=== PATIENT | male | born 1945 | race Caucasian/White ===

== ENCOUNTER 2017-10-09 00:34 | Emergency (ER) | payer OTHER, SELFPAY ==
[2017-10-09 00:57] VITALS: BP 152/93; PULSE 120; RESP 16; TEMP 36.3; O2SAT 98
--- NOTE | 2017-10-09 01:49 | DI.CT.S_ITS ---
PROCEDURE: CT THORACIC SPINE WO CON INDICATIONS: lower extremety numbness, suspected cauda equinal w/ untreated metastatic prostate CA TECHNIQUE: Noncontrast 3 mm thick sections acquired through the region of interest in the thoracic spine. Sagittal and coronal reformats were then constructed. For radiation dose reduction, the following was used: automated exposure control. COMPARISON: [facility], CT, CT LUMBAR SPINE WO CON, 10/09/2017, 1:47. FINDINGS: Image quality: Diagnostic. Bones: On the lateral views, the cervicothoracic junction is adequately visualized and the alignment through this region is within normal limits. The vertebral body heights are within normal limits throughout the thoracic spine without evidence to suggest acute compression fracture. However, there is superior endplate sclerosis involving the T11 vertebral body with slight concavity of the superior endplate. The bone mineralization is within normal limits. No suspicious osseous lesions of the thoracic spine are evident. However, there are small foci of sclerosis involving the L1 and L2 vertebra. There is a questionable area of sclerosis involving the left T12 pedicle. Moderate multilevel degenerative changes of the thoracic spine are present demonstrating multilevel endplate irregularity and prominent anterior disc osteophytes. Degenerative changes of the lower cervical spine are not adequately evaluated. Soft tissues: Included the soft tissues of the posterior chest and upper abdomen are essentially within normal limits for the patient's age. There is a small hiatal hernia. There is aortic and coronary artery atherosclerosis. The lungs appear to be relatively well aerated. Imaged portions of the mediastinum are grossly unremarkable. The included portions of the upper abdomen appear to be within normal limits. IMPRESSION: 1. Minimal sclerosis of the left T12 pedicle may be degenerative. No convincing thoracic metastases are evident. 2. Mild superior endplate sclerosis involving the T11 vertebral body may be degenerative. However, possibility of an acute compression fracture without significant vertebral collapse is difficult to exclude and clinical correlation is recommended. The need for better characterization utilizing MRI may be determined clinically. 3. Metastatic disease of the imaged upper lumbar spine is present. Note: The preliminary report provided by [facility] is concordant with the final report. Dictated by: Gera Garay M.D. on 10/09/2017 at 8:11 Approved by: Gera Garay M.D. on 10/09/2017 at 8:17
--- NOTE | 2017-10-09 01:49 | DI.CT.S_ITS ---
PROCEDURE: CT LUMBAR SPINE WO CON INDICATIONS: lower extremety numbness,suspected cauda equinal w/ untreated metastatic prostate cancer TECHNIQUE: Noncontrast 3 mm thick sections acquired from the T12 level to the sacrum. Sagittal and coronal reformats were constructed. For radiation dose reduction, the following was used: automated exposure control. COMPARISON: None. FINDINGS: Image quality: Diagnostic. Bones: There are 5 lumbar-type vertebral bodies. The lowest intervertebral disk space is designated as L5-S1. The vertebral body heights are well-maintained without evidence to suggest an acute compression fracture. The bone mineralization is within normal limits. Extensive sclerosis is identified involving the lumbar vertebra, which is more prominent involving the L3, L4, and L5 vertebra. Smaller areas of sclerosis are noted involving the L1 and L2 vertebra. There is prominent sclerosis and multifocal areas of sclerosis evident involving the sacrum. Severe multilevel degenerative changes of the lumbar spine are present demonstrating multilevel disc height loss, facet arthrosis, and disc osteophyte complexes. Vague calcifications are identified along the dorsal aspect of the L5 vertebral body. Multifocal areas of moderate to severe central canal stenosis and neural foraminal stenosis are present. Soft tissues: Included posterior soft tissues of the abdomen and pelvis demonstrate prominent thickening of the urinary bladder wall and probable enlargement of the prostate. There is aortic atherosclerosis. No martha lymphadenopathy is identified. Imaged bowel loops are nondilated. The imaged kidneys are grossly unremarkable. However, there is prominence of the left ureter. IMPRESSION: 1. Extensive sclerotic metastases of the lumbosacral spine. No pathologic fractures. 2. Advanced degenerative changes of the lumbar spine resulting multifocal areas of central canal and neural foraminal stenosis. 3. Prominent thickening of the urinary bladder wall probably is related to chronic bladder obstruction. However, clinical correlation to exclude cystitis is recommended. Note: The preliminary report provided by [facility] is concordant with the final report. Dictated by: Gera Garay M.D. on 10/09/2017 at 8:17 Approved by: Gera Garay M.D. on 10/09/2017 at 8:22
[2017-10-09 02:17] LABS: Add Manual Diff / Slide Review NO; Eosinophils Percent Auto 5.9 % (2-4); Hematocrit 39.3 % (41-53); Hemoglobin 13.7 g/dL (13.5-17.5); Lymphocytes Percent Auto 19.2 % (25-40); Mean Corpuscular HGB Conc 34.9 % (30-36); Mean Corpuscular Hemoglobin 31.6 PG (26-34); Mean Corpuscular Volume 90.5 fL (80-100); Monocytes Percent Auto 8.3 % (3-14); Neutrophils Absolute Auto 6400 /uL (3000-5900); Neutrophils Percent Auto 65.6 % (50-75); Platelet Count 286 X10^3/uL (150-400); Red Blood Cell Count 4.35 X10^6/uL (4.5-5.9); Red Cell Distribution Width 13.5 % (11.6-14.8); White Blood Cell Count 9.7 X10^3/uL (4.5-11.0)
[2017-10-09 02:23] LABS: Alanine Aminotransferase 16 IU/L (21-72); Albumin 4.4 g/dL (3.5-5.0); Albumin Globulin Ratio 1.4 (1.0-2.8); Alkaline Phosphatase 246 U/L (38-126); Aspartate Aminotransferase 30 IU/L (17-59); BUN Creatinine Ratio 30.9 (6-22); Bilirubin Total 0.6 mg/dL (0.2-1.3); Blood Urea Nitrogen 34 mg/dL (9-20); Calcium 9.4 mg/dL (8.4-10.2); Carbon Dioxide 27 mmol/L (22-32); Chloride 105 mmol/L (98-107); Estimated Glomerular Filt Rate > 60.0 mL/min (>60); Globulin 3.2 g/dL (1.7-4.1); Glucose 97 mg/dL (80-110); Sodium 146 mmol/L (137-145); Total Protein 7.6 g/dL (6.3-8.2)
[2017-10-09 02:25] LABS: HEMOLYSIS 77 (0-50)
[2017-10-09 02:30] LABS: Potassium 4.6 mmol/L (3.4-5.1)
[2017-10-09 03:37] LABS: Appearance Urine UA CLEAR; Bilirubin Urine UA NEGATIVE (NEGATIVE); Color Urine UA YELLOW; Glucose Urine UA NEGATIVE (Normal); Ketones Urine UA 2+ (NEGATIVE); Leukocyte Esterase Urine UA 1+ (NEGATIVE); Nitrite Urine UA POSITIVE (Negative); Occult Blood Urine UA 3+ (Negative); Protein Urine UA TRACE (Negative); Specific Gravity Urine UA 1.025 (1.000-1.035); Urobilinogen Urine UA 0.2 E.U./dL (0.2)
[2017-10-09 03:42] LABS: Bacteria Urine Moderate (10-30); Culture Indicated Urine Specimen Cultured; RBC Urine 0-1/HPF (0-5/HPF); WBC Urine 1-5/HPF (0-5/HPF)
[2017-10-09] MEDS: HYDROMORPHONE 0.5 MG INJ 1 MG IV ×2 (04:56→06:27)
[2017-10-09] MEDS: CEFTRIAXONE 1 GM/50 ML FROZ.PIGGY IV (05:18)
--- NOTE | 2017-10-09 06:11 | ED.EXTPRO ---
HPI - Extremity Problem General Chief complaint: Extremity Problem,Nontraumatic Stated complaint: low body numbness falls cant tell urinary problems History of Present Illness HPI Narrative: HPI 72-year-old male with history of prostate cancer that he was treating himself with an alkaline diet, orange juice, and other home interventions presents for evaluation of 1-2 weeks of gradually progressive left leg weakness, 2 days of decreased sensation in his right leg, 2 days of decreased perineal sensation, and one day of involuntary fecal incontinence. Patient denies back pain, night sweats, fevers, chills, unintentional weight loss, notes long-standing issues with urination secondary to his prostate cancer and he is been self cathing for upwards of one year, however he notes that he is now losing a sensation of urgency that is typically experienced prior to need to self catheterize. Patient reports that he's received his care through the [place], patient is a tenuous historian and provides a confusing history regarding his prior offered treatments. M/S/F/SocHx notable for: please see HPI; remainder reviewed with patient and in chart. ROS: Negative constitutional, eye, cardiovascular, pulmonary, GI, , MSK, skin, neurologic, psychiatric, endocrine unless noted in the HPI. Exam Gen: Pleasant, non-toxic appearing, resting comfortably. HEENT: NC, AT, PEERL, EOMI. Resp: Clear to auscultation bilaterally, normal work of breathing, no accessory muscle usage. Card: Regular rate and rhythm with no murmurs, rubs, or gallops, extremities warm and well perfused. GI: Non-tender to palpation throughout all quadrants, no focal tenderness at McBurney's point, negative Velazquez's sign, non-distended, no rebound or guarding. : No suprapubic tenderness to palpation. MSK/neuro: * no thoracic or lumbar spinal tenderness to palpation. * Decreased perineal sensation to touch. Minimal sphincter tone on RAFAEL. * Right 5/5 hip flexion, left 3+/5 hip flexion. Sensation grossly intact to touch on both feet. Patient able to ambulate with a cane, appears weakness left leg. Unable to stand on toes or heels. Skin: Normal color with no visible lesions. Neuro: AO x 3, no facial asymmetry, vision and hearing WNL. Psych: Mood and affect appropriate. Labs / Imaging: CT thoracic spine: no CT evidence of fracture or dislocation. CT lumbar spine: sclerotic lesions throughout the lumbar vertebra as well as sacrum consistent with a history of metastatic prostate cancer. Normal vertebral body height at all levels. There are degenerative changes at L2-3 through L5-S1 with mild to moderate spinal canal stenosis. WBC 9.7, HB 13.7, sodium 146, potassium 4.6, calcium 9.4, ALP 246 UA - moderate bacteria, negative leukocyte esterase, negative nitrates. MDM Previous chart, nursing note, labs, imaging, and vitals reviewed. A: 72-year-old male with history of prostate cancer that he was treating himself with an alkaline diet, orange juice, and other home interventions presents for evaluation of 1-2 weeks of gradually progressive left leg weakness, 2 days of decreased sensation in his right leg, 2 days of decreased perineal sensation, and one day of involuntary fecal incontinence. DDx: cauda equina syndrome 2/2 spinal epidural abscess, metastasis, fracture with retropulsion, hematoma, transverse myelitis, anal sphincter weakness, neuropathy with anal sphincter weakness, overflow incontinence Evaluation: patient with high risk history for cauda equina syndrome secondary to metastasis, MRI presently unavailable, CT obtained demonstrating lumbar metastases. ALP elevated, normal calcium level. Contacted [facility] for transfer for further care and evaluation, currently not accepting patients. Patient given 1 g ceftriaxone for possible UTI. Pt transferred to [facility] by Dr. José Luis TOSCANO accepting. Impression: suspected cauda equina syndrome (please reference below for remainder of encounter information) Related Data Allergies Allergy/AdvReac Type Severity Reaction Status Date / Time No Known Drug Allergies Allergy Verified 10/09/17 05:16 Exam Initial Vital Signs Initial Vital Signs: Vital Signs Temperature 97.4 F L 10/09/17 00:57 Pulse Rate 120 H 10/09/17 00:57 Respiratory Rate 16 10/09/17 00:57 Blood Pressure 152/93 H 10/09/17 00:57 Pulse Oximetry 98 10/09/17 00:57 Course Orders Ordered: ED Orders 10/09/17 01:49 CT lumbar spine wo con Stat CT thoracic spine wo con Stat 10/09/17 02:00 Complete Blood Count AUTO DIFF Stat Comprehensive Metabolic Panel Stat 10/09/17 03:20 Urinalysis and Microscopic Stat Urine Culture Stat Hydromorphone HCl (Dilaudid) 1 mg IV Q4H PRN PRN Reason: Pain, Severe Last Admin: 10/09/17 04:56 Dose: 1 mg Discontinued Medications Ceftriaxone Sodium/Dextrose (Rocephin) 1 gm in 50 mls @ 100 mls/hr IV NOW ONE Stop: 10/09/17 05:03 Last Admin: 10/09/17 05:18 Dose: 100 mls/hr Vital Signs - 8 hr 10/09/17 00:57 Temperature 97.4 F L Pulse Rate 120 H Respiratory Rate 16 Blood Pressure 152/93 H Pulse Oximetry 98 MDM - Extremity (Nontraumatic) Lab Data Result diagrams: 10/09/17 02:00 10/09/17 02:00 Lab Results 10/09/17 10/09/17 10/09/17 Range/Units 02:00 02:00 03:20 WBC 9.7 (4.5-11.0) X10^3/uL RBC 4.35 L (4.5-5.9) X10^6/uL Hgb 13.7 (13.5-17.5) g/dL Hct 39.3 L (41-53) % MCV 90.5 (80-100) fL MCH 31.6 (26-34) PG MCHC 34.9 (30-36) % RDW 13.5 (11.6-14.8) % Plt Count 286 (150-400) X10^3/uL Neut % (Auto) 65.6 (50-75) % Lymph % (Auto) 19.2 L (25-40) % [place] % (Auto) 8.3 (3-14) % Eos % (Auto) 5.9 H (2-4) % Baso % (Auto) 1.0 (0-2) % Neut # (Auto) 6400 H (4008-6754) /uL Sodium 146 H (137-145) mmol/L Potassium 4.6 (3.4-5.1) mmol/L Chloride 105 (98-107) mmol/L Carbon Dioxide 27 (22-32) mmol/L BUN 34 H (9-20) mg/dL Creatinine 1.10 (0.66-1.25) mg/dL Estimated GFR > 60.0 (>60) mL/min BUN/Creatinine Ratio 30.9 H (6-22) Glucose 97 (80-110) mg/dL Calcium 9.4 (8.4-10.2) mg/dL Total Bilirubin 0.6 (0.2-1.3) mg/dL AST 30 (17-59) IU/L ALT 16 L (21-72) IU/L Alkaline Phosphatase 246 H (38-126) U/L Total Protein 7.6 (6.3-8.2) g/dL Albumin 4.4 (3.5-5.0) g/dL Globulin 3.2 (1.7-4.1) g/dL Albumin/Globulin Ratio 1.4 (1.0-2.8) Urine Color Yellow Urine Appearance Clear Urine pH 5.0 (4.5-8.0) Ur Specific [place] 1.025 (1.000-1.035) Urine Protein Trace H (Negative) Urine Glucose (UA) Negative (Normal) g/dL Urine Ketones 2+ H (NEGATIVE) Urine Occult Blood 3+ H (Negative) Urine Nitrate Positive (Negative) Urine Bilirubin Negative (NEGATIVE) Urine Urobilinogen 0.2 (0.2) E.U./dL Ur Leukocyte Esterase 1+ H (NEGATIVE) Urine RBC 0-1/hpf (0-5/HPF) Urine WBC 1-5/hpf (0-5/HPF) Urine Bacteria Moderate (10-30) H (None) Ur Culture Indicated? Specimen cultured Micro UA Comment Not Reportable
--- NOTE | 2017-10-09 06:15 | ED_ITS ---
HPI - Extremity Problem General Chief complaint: Extremity Problem,Nontraumatic Stated complaint: low body numbness falls cant tell urinary problems History of Present Illness HPI Narrative: HPI 72-year-old male with history of prostate cancer that he was treating himself with an alkaline diet, orange juice, and other home interventions presents for evaluation of 1-2 weeks of gradually progressive left leg weakness, 2 days of decreased sensation in his right leg, 2 days of decreased perineal sensation, and one day of involuntary fecal incontinence. Patient denies back pain, night sweats, fevers, chills, unintentional weight loss, notes long-standing issues with urination secondary to his prostate cancer and he is been self cathing for upwards of one year, however he notes that he is now losing a sensation of urgency that is typically experienced prior to need to self catheterize. Patient reports that he's received his care through the [place], patient is a tenuous historian and provides a confusing history regarding his prior offered treatments. M/S/F/SocHx notable for: please see HPI; remainder reviewed with patient and in chart. ROS: Negative constitutional, eye, cardiovascular, pulmonary, GI, , MSK, skin , neurologic, psychiatric, endocrine unless noted in the HPI. Exam Gen: Pleasant, non-toxic appearing, resting comfortably. HEENT: NC, AT, PEERL, EOMI. Resp: Clear to auscultation bilaterally, normal work of breathing, no accessory muscle usage. Card: Regular rate and rhythm with no murmurs, rubs, or gallops, extremities warm and well perfused. GI: Non-tender to palpation throughout all quadrants, no focal tenderness at McBurney's point, negative Velazquez's sign, non-distended, no rebound or guarding. : No suprapubic tenderness to palpation. MSK/neuro: * no thoracic or lumbar spinal tenderness to palpation. * Decreased perineal sensation to touch. Minimal sphincter tone on RAFAEL. * Right 5/5 hip flexion, left 3+/5 hip flexion. Sensation grossly intact to touch on both feet. Patient able to ambulate with a cane, appears weakness left leg. Unable to stand on toes or heels. Skin: Normal color with no visible lesions. Neuro: AO x 3, no facial asymmetry, vision and hearing WNL. Psych: Mood and affect appropriate. Labs / Imaging: CT thoracic spine: no CT evidence of fracture or dislocation. CT lumbar spine: sclerotic lesions throughout the lumbar vertebra as well as sacrum consistent with a history of metastatic prostate cancer. Normal vertebral body height at all levels. There are degenerative changes at L2-3 through L5-S1 with mild to moderate spinal canal stenosis. WBC 9.7, HB 13.7, sodium 146, potassium 4.6, calcium 9.4, ALP 246 UA - moderate bacteria, negative leukocyte esterase, negative nitrates. MDM Previous chart, nursing note, labs, imaging, and vitals reviewed. A: 72-year-old male with history of prostate cancer that he was treating himself with an alkaline diet, orange juice, and other home interventions presents for evaluation of 1-2 weeks of gradually progressive left leg weakness , 2 days of decreased sensation in his right leg, 2 days of decreased perineal sensation, and one day of involuntary fecal incontinence. DDx: cauda equina syndrome 2/2 spinal epidural abscess, metastasis, fracture with retropulsion, hematoma, transverse myelitis, anal sphincter weakness, neuropathy with anal sphincter weakness, overflow incontinence Evaluation: patient with high risk history for cauda equina syndrome secondary to metastasis, MRI presently unavailable, CT obtained demonstrating lumbar metastases. ALP elevated, normal calcium level. Contacted [facility] for transfer for further care and evaluation, currently not accepting patients. Patient given 1 g ceftriaxone for possible UTI. Pt transferred to [facility] by Dr. José Luis TOSCANO accepting. Impression: suspected cauda equina syndrome (please reference below for remainder of encounter information) Related Data Allergies Allergy/AdvReac Type Severity Reaction Status Date / Time No Known Drug Allergies Allergy Verified 10/09/17 05:16 Exam Initial Vital Signs Initial Vital Signs: Vital Signs Temperature 97.4 F L 10/09/17 00:57 Pulse Rate 120 H 10/09/17 00:57 Respiratory Rate 16 10/09/17 00:57 Blood Pressure 152/93 H 10/09/17 00:57 Pulse Oximetry 98 10/09/17 00:57 Course Orders Ordered: ED Orders 10/09/17 01:49 CT lumbar spine wo con Stat CT thoracic spine wo con Stat 10/09/17 02:00 Complete Blood Count AUTO DIFF Stat Comprehensive Metabolic Panel Stat 10/09/17 03:20 Urinalysis and Microscopic Stat Urine Culture Stat Hydromorphone HCl (Dilaudid) 1 mg IV Q4H PRN PRN Reason: Pain, Severe Last Admin: 10/09/17 04:56 Dose: 1 mg Discontinued Medications Ceftriaxone Sodium/Dextrose (Rocephin) 1 gm in 50 mls @ 100 mls/hr IV NOW ONE Stop: 10/09/17 05:03 Last Admin: 10/09/17 05:18 Dose: 100 mls/hr Vital Signs - 8 hr 10/09/17 00:57 Temperature 97.4 F L Pulse Rate 120 H Respiratory Rate 16 Blood Pressure 152/93 H Pulse Oximetry 98 MDM - Extremity (Nontraumatic) Lab Data Result diagrams: 10/09/17 02:00 10/09/17 02:00 Lab Results 10/09/17 10/09/17 10/09/17 Range/Units 02:00 02:00 03:20 WBC 9.7 (4.5-11.0) X10^3/uL RBC 4.35 L (4.5-5.9) X10^6/uL Hgb 13.7 (13.5-17.5) g/dL Hct 39.3 L (41-53) % MCV 90.5 (80-100) fL MCH 31.6 (26-34) PG MCHC 34.9 (30-36) % RDW 13.5 (11.6-14.8) % Plt Count 286 (150-400) X10^3/uL Neut % (Auto) 65.6 (50-75) % Lymph % (Auto) 19.2 L (25-40) % [place] % (Auto) 8.3 (3-14) % Eos % (Auto) 5.9 H (2-4) % Baso % (Auto) 1.0 (0-2) % Neut # (Auto) 6400 H (0019-3660) /uL Sodium 146 H (137-145) mmol/L Potassium 4.6 (3.4-5.1) mmol/L Chloride 105 (98-107) mmol/L Carbon Dioxide 27 (22-32) mmol/L BUN 34 H (9-20) mg/dL Creatinine 1.10 (0.66-1.25) mg/dL Estimated GFR > 60.0 (>60) mL/min BUN/Creatinine Ratio 30.9 H (6-22) Glucose 97 (80-110) mg/dL Calcium 9.4 (8.4-10.2) mg/dL Total Bilirubin 0.6 (0.2-1.3) mg/dL AST 30 (17-59) IU/L ALT 16 L (21-72) IU/L Alkaline Phosphatase 246 H (38-126) U/L Total Protein 7.6 (6.3-8.2) g/dL Albumin 4.4 (3.5-5.0) g/dL Globulin 3.2 (1.7-4.1) g/dL Albumin/Globulin Ratio 1.4 (1.0-2.8) Urine Color Yellow Urine Appearance Clear Urine pH 5.0 (4.5-8.0) Ur Specific [place] 1.025 (1.000-1.035) Urine Protein Trace H (Negative) Urine Glucose (UA) Negative (Normal) g/dL Urine Ketones 2+ H (NEGATIVE) Urine Occult Blood 3+ H (Negative) Urine Nitrate Positive (Negative) Urine Bilirubin Negative (NEGATIVE) Urine Urobilinogen 0.2 (0.2) E.U./dL Ur Leukocyte Esterase 1+ H (NEGATIVE) Urine RBC 0-1/hpf (0-5/HPF) Urine WBC 1-5/hpf (0-5/HPF) Urine Bacteria Moderate (10-30) H (None) Ur Culture Indicated? Specimen cultured Micro UA Comment Not Reportable
[2017-10-09 06:49] VITALS: BP 157/68; PULSE 78; RESP 17; TEMP 36.6; O2SAT 96
== END 2017-10-09 06:25 | disposition short-term general hospital (02) ==
PROVIDERS: Emergency Provider Emergency Medicine
DX: G83.4 Cauda equina syndrome (principal)
CPT/HCPCS: 72128; 72131; 80053; 81001; 85025; 87077; 87086; 87186; 96365; 96375; 96376; 99283; 99284; J1170